=== PATIENT | male | born 1970 ===

== ENCOUNTER 2021-02-01 11:01 | Emergency (ER) | payer MEDICARE, MEDICAID, SELFPAY ==
[2021-02-01 11:02] VITALS: BP 129/76; PULSE 81; RESP 16; TEMP 37; O2SAT 97; BMI 25.8
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
[2021-02-01 12:19] VITALS: BP 122/68; PULSE 78; RESP 16; O2SAT 99
[2021-02-01] MEDS: KETOROLAC 30 MG/ML VIAL IV (12:38)
== END 2021-02-01 12:44 | disposition home or self-care (01) ==
PROVIDERS: Emergency Provider Emergency Medicine
DX: S20.20XA Contusion of thorax, unspecified, initial encounter (principal); M54.2 Cervicalgia; V89.2XXA Person injured in unspecified motor-vehicle accident, traffic, initial encounter
CPT/HCPCS: 36415; 71045; 96374; 99284; 99291; 99292; J1885